=== PATIENT | male | born 1980 | race Caucasian/White ===

== ENCOUNTER 2021-04-02 00:42 | Emergency (ER) | payer OTHER ==
[2021-04-02] MEDS ORDERED: MORPHINE 4 MG/ML SYR ONE ×2 (01:42→02:21)
[2021-04-02] MEDS ORDERED: NA CHLORIDE 0.9% 1,000 ML ONE (01:43)
[2021-04-02] MEDS ORDERED: ONDANSETRON 4 MG/2 ML VIAL ONE (01:43)
[2021-04-02 01:46] LABS: Absolute Lymphocytes (CBC) 2.5 K/uL (0.7-4.9); Basophils % 0.6 % (0-1.3); Lymphocytes % 27.3 % (15.3-44.8); MPV 6.9 fL (7.6-11.3)
[2021-04-02 02:10] LABS: Bilirubin Direct 0.1 mg/dL (0-0.2); Bilirubin Total 0.6 mg/dL (0.2-1.0); Protein, Total 7.4 g/dL (6.4-8.2)
[2021-04-02 02:11] LABS: Potassium 3.7 mmol/L (3.5-5.1)
--- NOTE | 2021-04-02 02:26 | EDPHYS ---
Physician Documentation [facility] Name: Seferino Do Age: 40 yrs Sex: Male : 1980 Arrival Date: 04/02/2021 Time: 00:46 Bed 8 Private MD: ED Physician Robert Connell HPI: 04/02 00:54 This 40 yrs old Male presents to ER via Ambulatory with complaints of Flank pm1 Pain. 00:54 The patient complains of pain in the right low back. The pain radiates to the right pm1 lower quadrant. Onset: The symptoms/episode began/occurred today. Modifying factors: The symptoms are alleviated by nothing. the symptoms are aggravated by nothing. Associated signs and symptoms: Pertinent negatives: diarrhea, dysuria, fever, nausea, vomiting. Severity of pain: in the emergency department the pain is actually worse. The patient has experienced a previous episode, approximately 3 years ago, and the symptoms today are exactly the same, kidney stones. The patient has not recently seen a physician. Historical: - Allergies: 00:52 No Known Allergies; wg - Home Meds: 00:52 None [Active]; wg - PMHx: 00:52 None; wg - Immunization history:: Adult Immunizations up to date. - Social history:: Smoking status: Patient denies any tobacco usage or history of. ROS: 00:54 Constitutional: Negative for fever, chills, and weight loss, Cardiovascular: Negative pm1 for chest pain, palpitations, and edema, Respiratory: Negative for shortness of breath, cough, wheezing, and pleuritic chest pain, Abdomen/GI: Negative for abdominal pain, nausea, vomiting, diarrhea, and constipation. 00:54 MS/Extremity: Negative for injury and deformity, Skin: Negative for injury, rash, and discoloration, Neuro: Negative for headache, weakness, numbness, tingling, and seizure. 00:54 Abdomen/GI: Negative for nausea, vomiting, and diarrhea. 00:54 Back: Positive for flank pain, on the right, radiating to rlq. 00:54 : Positive for decreased flow, Negative for burning with urination. 00:54 All other systems are negative. Exam: 00:54 Constitutional: This is a well developed, well nourished patient who is awake, alert, pm1 and in no acute distress. Head/Face: Normocephalic, atraumatic. 00:54 Back: No spinal tenderness. No costovertebral tenderness. Full range of motion. Skin: Warm, dry with normal turgor. Normal color with no rashes, no lesions, and no evidence of cellulitis. MS/ Extremity: Pulses equal, no cyanosis. Neurovascular intact. Full, normal range of motion. 00:54 Eyes: Exam is negative for acute changes, Extraocular movements: no acute changes, Conjunctiva: no acute changes, no injection, Sclera: no acute changes, icterus, is not appreciated. 00:54 Cardiovascular: Exam negative for acute changes, Rate: normal, Rhythm: regular, Pulses: no pulse deficits are appreciated. 00:54 Respiratory: Exam negative for acute changes, the patient does not display signs of respiratory distress, Respirations: normal. 00:54 Abdomen/GI: Exam negative for acute changes, Inspection: abdomen appears normal, Palpation: soft, in all quadrants, mild abdominal tenderness, in the right lower quadrant. 00:54 Neuro: Exam negative for acute changes, Orientation: is normal, Mentation: is normal, Motor: is normal, moves all fours. Vital Signs: 00:48 BP 143 / 95; Pulse 98; Resp 20; Temp 98.9; Pulse Ox 100% on R/A; Weight 108.86 kg; wg Height 5 ft. 10 in. (177.80 cm); Pain 10/10; 01:37 BP 136 / 89; Pulse 86; Resp 19; Temp 98.7; Pulse Ox 99% on R/A; Pain 8/10; cw2 02:38 BP 131 / 84; Pulse 85; Resp 15; Temp 98.5; Pulse Ox 99% on R/A; Pain 3/10; cw2 00:48 Body Mass Index 34.44 (108.86 kg, 177.80 cm) wg MDM: 01:05 Patient medically screened. pm1 01:09 Data reviewed: vital signs. Data interpreted: Pulse oximetry: on room air is 100 %. pm1 Interpretation: normal. 02:25 Counseling: I had a detailed discussion with the patient and/or guardian regarding: the pm1 historical points, exam findings, and any diagnostic results supporting the discharge/admit diagnosis, lab results, radiology results, the need for outpatient follow up, a urologist, to return to the emergency department if symptoms worsen or persist or if there are any questions or concerns that arise at home. 04/02 00:53 Order name: Basic Metabolic Panel; Complete Time: 02:13 wg 04/02 00:53 Order name: CBC with Diff; Complete Time: 01:54 wg 04/02 00:53 Order name: Hepatic Function; Complete Time: 02:13 wg 04/02 00:53 Order name: Lipase; Complete Time: 02:13 wg 04/02 01:05 Order name: CT Stone Protocol pm1 04/02 00:53 Order name: IV Saline Lock; Complete Time: 01:15 wg 04/02 00:53 Order name: Labs collected and sent; Complete Time: 01:15 wg 04/02 01:06 Order name: Urine Dipstick-Ancillary (obtain specimen) pm1 Administered Medications: 01:28 Drug: morphine 4 mg Route: IVP; Site: right antecubital; cw2 01:28 Drug: Zofran (Ondansetron) 4 mg Route: IVP; Site: right antecubital; cw2 01:28 Drug: NS 0.9% 1000 ml Route: IV; Rate: 1000 ml; Site: right antecubital; cw2 02:00 Follow up: IV Status: Completed infusion; IV Intake: 1000ml cw2 02:00 Drug: morphine 4 mg Route: IVP; Site: right antecubital; cw2 02:35 Drug: Ketorolac 30 mg Route: IVP; Site: right antecubital; cw2 02:35 Drug: Flomax (tamsulosin) 0.4 mg Route: PO; cw2 Disposition: 06:53 Co-signature as Attending Physician, Robert Connell MD I agree with the assessment and albert plan of care. Disposition Summary: 04/02/21 02:26 Discharge Ordered Location: Home pm1 Problem: new pm1 Symptoms: have improved pm1 Condition: Stable pm1 Diagnosis - Calculus of ureter pm1 Followup: pm1 - With: Emergency Department - When: As needed - Reason: Worsening of condition Followup: pm1 - With: Private Physician - When: 2 - 3 days - Reason: Recheck today's complaints, Continuance of care, Re-evaluation by your physician Discharge Instructions: - Discharge Summary Sheet pm1 - Kidney Stones pm1 - Dietary Guidelines to Help Prevent Kidney Stones pm1 Forms: - Medication Reconciliation Form pm1 - Thank You Letter pm1 - Antibiotic Education pm1 - Prescription Opioid Use pm1 Prescriptions: - Flomax 0.4 mg Oral capsule - take 1 capsule by ORAL route once daily 1/2 hour following the same meal each pm1 day; 10 capsule; Refills: 0, Product Selection Permitted - Zofran 4 mg Oral Tablet - take 1 tablet by ORAL route every 8 hours As needed; 20 tablet; Refills: 0, pm1 Product Selection Permitted - acetaminophen-codeine 300-15 mg Oral tablet - take 2 tablet by ORAL route every 6 hours As needed as needed; 20 tablet; pm1 Refills: 0, Product Selection Permitted - Cipro 500 mg Oral Tablet - take 1 tablet by ORAL route every 12 hours for 7 days; 14 tablet; Refills: 0, pm1 Product Selection Permitted Signatures: Dispatcher [employer] Robert Albright MD MD cha Marinas, Patrick, LUIS FELIPE [employer] AND SAFETY ADVISER pm1 Anurag Jean RN wg Williams, Christopher, RN RN cw2 Corrections: (The following items were deleted from the chart) 00:52 00:52 PMHx: None; [facility]
--- NOTE | 2021-04-02 02:26 | ER ---
Nurse's Notes [facility] Name: Sfeerino Do Age: 40 yrs Sex: Male : 1980 Arrival Date: 04/02/2021 Time: 00:46 Bed 8 Private MD: Diagnosis: Calculus of ureter Presentation: 04/02 00:48 Chief complaint: Patient states: Pt states he woke up this morning with severe right wg flank pain. Pt states the pain started 1 day ago but got better. Pt states he does have a hx of kidney stones. Pt states he is having some slowness to his urination but no pain in the groin. Pt c/o nausea but no vomiting. Coronavirus screen: Vaccine status: Patient reports receiving the 2nd dose of the covid vaccine. Date August 2020 Client denies travel out of the [place] in the last 14 days. At this time, the client does not indicate any symptoms associated with coronavirus-19. Ebola Screen: Patient negative for fever greater than or equal to 101.5 degrees Fahrenheit, and additional compatible Ebola Virus Disease symptoms Patient denies exposure to infectious person. Patient denies travel to an Ebola-affected area in the 21 days before illness onset. No symptoms or risks identified at this time. Initial Sepsis Screen: Does the patient meet any 2 criteria? No. Patient's initial sepsis screen is negative. Does the patient have a suspected source of infection? No. Patient's initial sepsis screen is negative. Risk Assessment: Do you want to hurt yourself or someone else? Patient reports no desire to harm self or others. Onset of symptoms was April 02, 2021 at 00:30. 00:48 Method Of Arrival: Ambulatory wg 00:48 Acuity: VALENTE 3 wg 02:36 Note PT UP FOR DISCHARGE AT THIS TIME. PT AWAKE ALERT AOX4 SPEAKING IN FULL SENTENCES. cw2 PT AMBULATORY ALONE WITH A STEADY GAIT. DISCHARGE INSTRUCTIONS DISCUSSED WITH PT AND PRESCRIPTION X4. ALL QUESTIONS ANSWERED AND NO CONCERNS VERBALIZED AT THIS TIME. PT ADVISED TO COME BACK TO ER AT ANYTIME. PT ACKNOWLEDGES. Triage Assessment: 00:52 General: Appears distressed, uncomfortable, well groomed, well developed, Behavior is wg cooperative, appropriate for age, restless. Pain: Complains of pain in Right Flank Pain currently is 10 out of 10 on a pain scale. Quality of pain is described as sharp. Historical: - Allergies: 00:52 No Known Allergies; wg - Home Meds: 00:52 None [Active]; - PMHx: 00:52 None; wg - Immunization history:: Adult Immunizations up to date. - Social history:: Smoking status: Patient denies any tobacco usage or history of. Screenin:10 Abuse screen: Denies threats or abuse. Nutritional screening: No deficits noted. cw2 Tuberculosis screening: No symptoms or risk factors identified. Fall Risk IV access (20 points). Assessment: 01:11 General: Appears distressed. cw2 01:13 Pain: Complains of pain in right lower quadrant Pain radiates to right low back Pain cw2 currently is 8 out of 10 on a pain scale. Quality of pain is described as sharp, Pain began 1 day ago. Is intermittent. Neuro: No deficits noted. Cardiovascular: No deficits noted. Respiratory: No deficits noted. GI: No deficits noted. 02:15 Reassessment: Patient appears in no apparent distress at this time. No changes from 2 previously documented assessment. Vital Signs: 00:48 BP 143 / 95; Pulse 98; Resp 20; Temp 98.9; Pulse Ox 100% on R/A; Weight 108.86 kg; wg Height 5 ft. 10 in. (177.80 cm); Pain 10/10; 01:37 BP 136 / 89; Pulse 86; Resp 19; Temp 98.7; Pulse Ox 99% on R/A; Pain 8/10; cw2 02:38 BP 131 / 84; Pulse 85; Resp 15; Temp 98.5; Pulse Ox 99% on R/A; Pain 3/10; cw2 00:48 Body Mass Index 34.44 (108.86 kg, 177.80 cm) ED Course: 00:46 Patient arrived in ED. 00:52 Triage completed. 00:52 Arm band placed on left wrist. wg 01:05 Chester Villarreal NP is PHCP. pm1 01:05 Robert Connell MD is Attending Physician. pm1 01:09 Dipak Sutherland RN is Primary Nurse. cw2 01:09 No apparent distress. cw2 01:09 No provider procedures requiring assistance completed. Initial lab(s) drawn, by hi, cw2 sent to lab. Inserted saline lock: 20 gauge in right antecubital area, using aseptic technique. Blood collected. 01:10 Patient has correct armband on for positive identification. Placed in gown. Bed in low cw2 position. Call light in reach. Side rails up X2. Door closed. Noise minimized. Moved to private room. 01:15 Basic Metabolic Panel Sent. cw2 01:15 CBC with Diff Sent. cw2 01:15 Hepatic Function Sent. cw2 01:15 Lipase Sent. cw2 01:35 CT Stone Protocol In Process Unspecified. EDMS Administered Medications: 01:28 Drug: morphine 4 mg Route: IVP; Site: right antecubital; cw2 01:28 Drug: Zofran (Ondansetron) 4 mg Route: IVP; Site: right antecubital; cw2 01:28 Drug: NS 0.9% 1000 ml Route: IV; Rate: 1000 ml; Site: right antecubital; cw2 02:00 Follow up: IV Status: Completed infusion; IV Intake: 1000ml cw2 02:00 Drug: morphine 4 mg Route: IVP; Site: right antecubital; cw2 02:35 Drug: Ketorolac 30 mg Route: IVP; Site: right antecubital; cw2 02:35 Drug: Flomax (tamsulosin) 0.4 mg Route: PO; cw2 Intake: 02:00 IV: 1000ml; Total: 1000ml. cw2 Outcome: 01:09 Condition: good cw2 02:26 Discharge ordered by . pm1 02:39 Patient left the ED. cw2 Signatures: Dispatcher [employer] EDMS Chester Villarreal NP SHOVEL LOGGER pm1 Xin Vega Liam, RN Dipak Sutherland RN RN cw2 Corrections: (The following items were deleted from the chart) 00:52 00:52 PMHx: None; andrea mendez
[2021-04-02 02:46] VITALS: O2SAT 99
[2021-04-02 02:48] VITALS: BP 131/84; TEMP 98.5
[2021-04-02] MEDS ORDERED: KETOROLAC 30 MG/ML INJ ONE (02:55)
[2021-04-02] MEDS ORDERED: TAMSULOSIN 0.4 MG SR CAP ONE (02:55)
--- NOTE | 2021-04-02 11:27 | RAD REPORT ---
EXAM DESCRIPTION: CT - Stone Protocol - 04/02/2021 6:41 am CLINICAL HISTORY: FLANK PAIN COMPARISON: None Available. TECHNIQUE: CT of the abdomen and pelvis without IV contrast. Evaluation of the solid organs and vasc ulature is suboptimal due to lack of IV contrast. This exam was performed according to our department al dose-optimization program, which includes automated exposure control, adjustment of the mA and/or kV according to patient size and/or use of iterative reconstruction technique. FINDINGS: Lung Bases: Normal bibasilar opacities may represent dependent atelectasis. Bones: No destructive bone lesions identified. Abdomen: Liver: The liver has normal size and density. Gallbladder: No calcified gallstones. Spleen, Pancreas, and Adrenal Glands: The spleen, pancreas, and adrenal glands are unremarkable. Kidneys: There is a 0.3 cm obstructing calculus in the proximal right ureter producing mild right hyd ronephrosis. No left-sided hydronephrosis. Vasculature: The aorta and IVC have normal caliber and position. Stomach: Small hiatal hernia. Other: No free intraperitoneal air. No free fluid or lymphadenopathy. Tiny fat-containing umbilic al hernia. Pelvis: Bladder: Urinary bladder is unremarkable. Bowel: No dilated loops of large or small bowel. Appendix: Normal appendix. Pelvis: Prostate is not enlarged. IMPRESSION: There is a 0.3 cm obstructing calculus in the proximal right ureter producing mild right hydronephrosis. Electronically signed by: Dipak Chow 04/02/2021 1:53 AM CDT Due to temporary technical issues with the PACS/Fluency reporting system, reports are being signed by the in house radiologists without review as a courtesy to insure prompt reporting. The interpreting radiologist is fully responsible for the content of the report.
== END 2021-04-02 02:39 | disposition home or self-care (01) ==
LOC: ER 00:42
DX: N20.1 Calculus of ureter (principal); Z87.442 Personal history of urinary calculi
CPT/HCPCS: 96361; 85025; 80048; 36415; 80076; 83690; 76377; 74176; 96375; 96374; 99284; J7030; J2405